=== PATIENT | female | born 1995 | race Caucasian/White ===

== ENCOUNTER 2016-06-19 15:11 | Emergency (ER) | payer SELFPAY ==
[~2016-06-19] VITALS: Ht 170.2 cm; Wt 50.0 kg
[2016-06-19 15:30] VITALS: BP 102/59
[2016-06-19] MEDS ORDERED: CYCLOBENZAPRINE 10MG TABLET PO ONE (17:45)
[2016-06-19] MEDS ORDERED: IBUPROFEN 600MG TABLET PO ONE (17:45)
== END 2016-06-19 18:29 | disposition home or self-care (01) ==
LOC: ER 15:37
DX: S16.1XXA Strain of muscle, fascia and tendon at neck level, initial encounter (principal); M41.9 Scoliosis, unspecified; V43.62XA Car passenger injured in collision with other type car in traffic accident, initial encounter; Y92.488 Other paved roadways as the place of occurrence of the external cause
CPT/HCPCS: 72040; 99284